=== PATIENT | male | born 1950 | race Caucasian/White ===

== ENCOUNTER → 2016-10-31 | Outpatient (CLI) | payer OTHER, MEDICARE ==
[~2016-10-31] MED LIST: ACCU-CHEK AVIV1 EACH MC; ACTOS; ACTOS 30 MG TAB30 M1 PO; ANTARA130 MG PO; ANTARA30 MG PO; AVAPRO300 MG PO; AZOR 5-20 MG T1 EACH PO; CEFTIN 250 MG250 MG PO; CEFTIN500 MG PO; COUMADIN 5 MG TA5 M1 PO; ENOXAPARIN120 MG/0.1 SUBQ; GLIMEPIRIDE PO; LEVEMIR SUBQ; TRAMADOL 50 MG50 MG PO; TRICOR145 MG PO; ULTRAM 50MG TAB50 MG PO; VICTOZA 3-0.6 MG/0.1 SQ; VICTOZA0.6 MG/0.1 SUBQ
== END ==
LOC: ULTRA 12:27
DX: M79.604 Pain in right leg (principal); R60.9 Edema, unspecified

== ENCOUNTER → 2018-07-19 | Outpatient (CLI) | payer OTHER, MEDICARE | LOC: ULTRA 15:17 | DX: M79.662 Pain in left lower leg (principal); Z86.718 Personal history of other venous thrombosis and embolism ==

== ENCOUNTER → 2019-04-19 | Outpatient (CLI) | payer OTHER, MEDICARE | LOC: CAT 11:05 | DX: R42 Dizziness and giddiness (principal) ==

== ENCOUNTER → 2020-11-12 | Outpatient (CLI) | payer OTHER, MEDICARE ==
[2020-11-12 16:48] LABS: CREATININE 1.9 mg/dL (0.7-1.3)
== END ==
LOC: CAT 16:16
PROVIDERS: ATTEND Nurse Practitioner
DX: M54.6 Pain in thoracic spine (principal); Z86.718 Personal history of other venous thrombosis and embolism